=== PATIENT | female | born 1990 | race Two or more races ===

== ENCOUNTER 2017-09-19 13:01 | Emergency (ER) | payer MEDICAID ==
[~2017-09-19] VITALS: Ht 175.3 cm; Wt 63.0 kg
[2017-09-19] MEDS ORDERED: SODIUM CHLORIDE 0.9% 1,000 ML IV ONE (15:06)
[2017-09-19 15:48] LABS: BASOPHILS % 1.1 % (0.0-2.0); EOSINOPHILS % 2.9 % (0.0-5.0); HEMATOCRIT. 37.8 % (36.0-48.0); HEMOGLOBIN. 13.1 g/dL (12.0-16.0); MEAN CORPUSCULAR HEMOGLOBIN 31.4 pg (28.0-32.0); MEAN CORPUSCULAR VOLUME 90.6 fL (81.0-99.0); MONOCYTES % 13.2 % (2.0-8.0); NEUTROPHILS % 58.8 % (40.0-76.0); PLATELET 290 x1000/uL (130-400); RED BLOOD CELL COUNT 4.18 mill/uL (4.2-5.4); RED CELL DISTRIBUTION WIDTH 14.5 % (11.6-14.6)
[2017-09-19 15:59] LABS: CARBON DIOXIDE 29 mEq/L (21-32); CHLORIDE 106 mEq/L (98-107)
[2017-09-19] MEDS ORDERED: IOHEXOL-300 100 ML BOTTLE ONE (17:36)
[2017-09-19] MEDS ORDERED: TETRACAINE 0.5% OPHTH DROPS 4ML OP ONE (17:45)
[2017-09-19] MEDS ORDERED: FLUORESCEIN SODIUM 1MG/STRIP OP ONE (17:45)
[2017-09-19 18:12] VITALS: BP 114/74
== END 2017-09-19 18:36 | disposition home or self-care (01) ==
LOC: ER 14:38
DX: H02.841 Edema of right upper eyelid (principal); J34.2 Deviated nasal septum
CPT/HCPCS: 36415; 70487; 80053; 81025; 85025; 87040; 96360; 99285; J7030; Q9967; Z7610

== ENCOUNTER 2018-02-03 12:08 | Emergency (ER) | payer MEDICAID ==
[~2018-02-03] VITALS: Ht 175.3 cm; Wt 60.0 kg
[2018-02-03 12:13] VITALS: BP 152/62
[2018-02-03] MEDS ORDERED: IBUPROFEN 600MG TABLET PO STA (12:26)
[2018-02-03] MEDS ORDERED: TETANUS, DIPHTHERIA, PERTUSSIS VAC/PF 0.5ML (>7YR OLD) IM ONE (12:30)
[2018-02-03] MEDS ORDERED: LIDOCAINE HCL/PF 1% 10 MG/ML 5ML VIAL IJ ONE (12:30)
[2018-02-03] MEDS ORDERED: BACITRACIN ZINC OINT UDPKT TOP ONE (12:30)
== END 2018-02-03 17:35 | disposition home or self-care (01) ==
LOC: ER 13:26
DX: S91.311A Laceration without foreign body, right foot, initial encounter (principal); E11.9 Type 2 diabetes mellitus without complications; F12.10 Cannabis abuse, uncomplicated; Z23 Encounter for immunization; W25.XXXA Contact with sharp glass, initial encounter; Y93.89 Activity, other specified; Y92.89 Other specified places as the place of occurrence of the external cause; Y99.8 Other external cause status
CPT/HCPCS: 12002; 73630; 81025; 90471; 90715; 99284; J3490; X7700; Z7610